=== PATIENT | female | born 2000 | race Caucasian/White ===

== ENCOUNTER 2023-09-17 21:51 | Emergency (ER) | payer OTHER ==
[~2023-09-17] VITALS: Ht 157.5 cm; Wt 63.5 kg
[2023-09-17 22:07] VITALS: BP 118/76; PULSE 97; RESP 16; TEMP 98.5; O2SAT 99
[2023-09-17 22:50] VITALS: BP 124/76; PULSE 96; RESP 14; O2SAT 99
[2023-09-18] MEDS ORDERED: IBUPROFEN 600 MG TAB PO ONE (00:05)
[2023-09-18] MEDS ORDERED: ACETAMINOPHEN 325 MG TAB PO ONE (00:05)
[2023-09-18] MEDS ORDERED: LIDOCAINE OINTMENT 5% 35 GM TUBE TP ONE (00:05)
[2023-09-18] MEDS ORDERED: LIDOCAINE/PRILOCAINE 2.5% 5 GM TUBE TP ONE (00:18)
[2023-09-18] MEDS ORDERED: LIDOCAINE MPF 1% 10 MG/ML VIAL INJ ONE (00:35)
[2023-09-18] MEDS ORDERED: MORPHINE SULFATE 4 MG/ML SYR ONE (01:03)
[2023-09-18] MEDS ORDERED: SULFAMETH/TRIMETH DS 800/160MG 1 TAB PO ONE (01:15)
[2023-09-18] MEDS ORDERED: cephALEXin 500 MG CAP PO ONE (01:15)
[2023-09-18] MEDS ORDERED: SULF-59 PO (01:20)
[2023-09-18] MEDS ORDERED: CEPH-588 PO (01:20)
[2023-09-18] MEDS ORDERED: MORPHINE SULFATE 4 MG/ML SYR IM ONE (02:10)
== END 2023-09-18 02:00 | disposition home or self-care (01) ==
LOC: MED 21:51
DX: L02.411 Cutaneous abscess of right axilla (principal); E10.9 Type 1 diabetes mellitus without complications; Z79.2 Long term (current) use of antibiotics
CPT/HCPCS: 10061; 99284; J2001; J2270